=== PATIENT | male | born 1960 | race Caucasian/White ===

== ENCOUNTER 2020-08-18 21:49 | Inpatient (IN) | payer BC, OTHER ==
[~2020-08-18] VITALS: Ht 188 cm; Wt 113.6 kg
[~2020-08-18 21:49] MED LIST: SULF1TAB45 PO; VANCOmycin 2,000MG in NS 500ml IV soln IV ONE
[2020-08-18 22:30] LABS: BASOPHILS # (AUTO) 0.1 X10'3 (0-0.2); BASOPHILS % (AUTO) 0.9 % (0-1); EOSINOPHILS % (AUTO) 0.5 % (0-6); HEMATOCRIT 42.7 % (42.0-52.0); HEMOGLOBIN 14.7 g/dl (14.0-17.9); LYMPHOCYTES # (AUTO) 1.5 X10'3 (1.1-4.8); LYMPHOCYTES % (AUTO) 17.4 % (21-51); MEAN CORPUSCULAR HEMOGLOBIN 30.6 PG (27.0-31.0); MEAN CORPUSCULAR HGB CONC 34.4 g/dL (33.0-36.5); MONOCYTES # (AUTO) 0.7 X10'3 (0-0.9); MONOCYTES % (AUTO) 7.7 % (2-12); NEUTROPHILS # (AUTO) 6.5 X10'3 (1.8-7.7); NEUTROPHILS % (AUTO) 73.5 % (42-75); PLATELET COUNT 154 X10'3 (140-440); RED CELL DISTRIBUTION WIDTH 12.3 % (11.5-14.5); WHITE BLOOD COUNT 8.8 X10'3 (4.5-11.0)
[2020-08-18] MEDS ORDERED: normal saline 1000ML IV soln IVB ONE (22:30)
[2020-08-18] MEDS ORDERED: diltiazem 5mg/ml 5ml inj. IV ONE (22:30)
[2020-08-18 22:43] LABS: ALANINE AMINOTRANSFERASE 20 U/L (12-78); ALBUMIN 3.7 G/DL (3.4-5.0); ALBUMIN/GLOBULIN RATIO 0.8 (1.1-1.5); ALKALINE PHOSPHATASE 61 IU/L (46-116); ANION GAP 10 (8-16); ASPARTATE AMINO TRANSFERASE 14 U/L (10-37); BLOOD UREA NITROGEN 17 MG/DL (7-18); CALCIUM 9.3 MG/DL (8.5-10.1); CHLORIDE 98 MMOL/L (99-107); CREATININE 1.06 MG/DL (0.60-1.10); GLUCOSE 372 MG/DL (70-104); POTASSIUM 4.3 MMOL/L (3.5-5.1); SODIUM 135 MMOL/L (135-145); TOTAL CARBON DIOXIDE 27.1 MMOL/L (24-32); TOTAL PROTEIN 8.4 G/DL (6.4-8.2); eGFR 72 ML/MIN
[2020-08-18] MEDS ORDERED: diltiazem-NS 100mg/100ml 100 ML IV SCH (23:05)
[2020-08-18] MEDS ORDERED: magnesium 2GM in 50ml NS 50 ML IV PRN (23:15)
[2020-08-18] MEDS ORDERED: ondansetron/PF 4mg/2ml inj IV PRN (23:15)
[2020-08-18] MEDS ORDERED: magnesium Cl slow-release 64mg tablet PO PRN (23:15)
[2020-08-18] MEDS ORDERED: glucagon, human recombinant 1mg kit SUBCUT PRN (23:15)
[2020-08-18] MEDS ORDERED: potassium Cl 20 mEq SR tablet PO PRN ×2 (23:15)
[2020-08-18] MEDS ORDERED: magnesium 4gm in 100ml NS 100 ML IV PRN (23:15)
[2020-08-18] MEDS ORDERED: dextrose 50%-water 50ml dispensing syringe IV PRN ×2 (23:15)
[2020-08-18] MEDS ORDERED: mag hydrox/Alum hydrox/simeth 30ml oral suspension PO PRN (23:15)
[2020-08-18] MEDS ORDERED: MESSAGE TO PHARMACY PO ONE (23:15)
[2020-08-18] MEDS ORDERED: acetaminophen 325mg tablet PO PRN (23:15)
[2020-08-18] MEDS ORDERED: potassium Cl 40MEQ/1/2NS 520ml 520 ML IV PRN ×2 (23:15)
[2020-08-18] MEDS ORDERED: dextrose ORAL solution 15 GM/59 ML bottle PO PRN ×2 (23:15)
[2020-08-18] MEDS: diltiazem-NS 100mg/100ml 100 ML IV SCH (23:33)
[2020-08-18] MEDS ORDERED: VANCOmycin 2,000MG in NS 500ml IV soln IV ONE (23:55)
[2020-08-18] MEDS ORDERED: NO HOME MEDS (23:55)
[2020-08-19] VITALS (11 sets, daily range): BP systolic 121–152; BP diastolic 56–90
[2020-08-19] MEDS: morphine 2 MG/ML inj. syringe IV PRN ×5 (00:32→23:39)
--- NOTE | 2020-08-19 00:36 | NUR ---
Cardizem drip increased to 10mg/hr for HR 125 a-fib, BP 139/92, SPo2 97% RR 16
--- NOTE | 2020-08-19 02:00 | NUR ---
Patient in room PCU 3012. I have received report from Myron ALVAREZ and had the opportunity to ask questions and assume patient care.
[2020-08-19 02:03] LABS: CLARITY,URINE CLEAR (Clear); COLOR,URINE YELLOW (Yellow); GLUCOSE, URINE >=1000 mg/dl (Neg); KETONES,URINE 15 mg/dl (Neg); LEUKOCYTE ESTERASE ,URINE NEGATIVE (Neg); NITRITES, URINE NEGATIVE (Neg); OCCULT BLOOD,URINE TRACE-LYSED (Neg); PH,URINE 5.5 (4.8-8.0); PROTEIN,URINE NEGATIVE (Neg); UROBILINOGEN,URINE 0.2 E.U/dL (0.2-1.0)
[2020-08-19 02:08] LABS: RBC,URINE 0-2 /HPF (0-2); UA COLLECTION TYPE CLN CATCH MIDSTREAM; WBC,URINE 0-4 /HPF (0-4)
[2020-08-19 02:09] LABS: BACTERIA,URINE NONE SEEN /HPF (Neg); SQUAMOUS EPITHELIAL CELL,UR FEW /LPF (FEW)
[2020-08-19] MEDS: diltiazem-NS 100mg/100ml 100 ML IV SCH (06:55)
[2020-08-19 06:56] LABS: BASOPHILS # (AUTO) 0.1 X10'3 (0-0.2); BASOPHILS % (AUTO) 0.8 % (0-1); EOSINOPHILS # (AUTO) 0.1 X10'3 (0-0.9); EOSINOPHILS % (AUTO) 0.8 % (0-6); HEMATOCRIT 39.8 % (42.0-52.0); HEMOGLOBIN 13.6 g/dl (14.0-17.9); LYMPHOCYTES # (AUTO) 1.5 X10'3 (1.1-4.8); LYMPHOCYTES % (AUTO) 20.3 % (21-51); MEAN CORPUSCULAR HEMOGLOBIN 30.6 PG (27.0-31.0); MEAN CORPUSCULAR HGB CONC 34.3 g/dL (33.0-36.5); MEAN CORPUSCULAR VOLUME 89.4 FL (78-98); MEAN PLATELET VOLUME 9.7 FL (7.4-10.4); MONOCYTES # (AUTO) 0.8 X10'3 (0-0.9); MONOCYTES % (AUTO) 11.1 % (2-12); NEUTROPHILS # (AUTO) 4.8 X10'3 (1.8-7.7); PLATELET COUNT 144 X10'3 (140-440); RED BLOOD COUNT 4.45 X10'6 (4.70-6.10); RED CELL DISTRIBUTION WIDTH 12.5 % (11.5-14.5); WHITE BLOOD COUNT 7.2 X10'3 (4.5-11.0)
[2020-08-19 07:29] LABS: ALANINE AMINOTRANSFERASE 19 U/L (12-78); ALBUMIN 3.3 G/DL (3.4-5.0); ALBUMIN/GLOBULIN RATIO 0.8 (1.1-1.5); ALKALINE PHOSPHATASE 53 IU/L (46-116); ANION GAP 7 (8-16); ASPARTATE AMINO TRANSFERASE 11 U/L (10-37); BILIRUBIN,TOTAL 0.9 MG/DL (0.1-1.0); BLOOD UREA NITROGEN 14 MG/DL (7-18); BUN/CREATININE RATIO 17.5 (5.4-32.0); CALCIUM 9.1 MG/DL (8.5-10.1); CHLORIDE 102 MMOL/L (99-107); GLUCOSE 261 MG/DL (70-104); MAGNESIUM 1.8 MG/DL (1.5-2.4); POTASSIUM 3.8 MMOL/L (3.5-5.1); SODIUM 137 MMOL/L (135-145); TOTAL CARBON DIOXIDE 27.7 MMOL/L (24-32); TOTAL PROTEIN 7.6 G/DL (6.4-8.2); eGFR > 90 ML/MIN
[2020-08-19] MEDS: apixaban 5mg tablet PO SCH ×2 (07:59→19:25)
[2020-08-19] MEDS ORDERED: metoprolol tartrate 50mg tablet PO SCH (08:00)
[2020-08-19] MEDS: K and/or MAG REPLACEMENT MC SCH ×2 (08:00→19:09)
[2020-08-19] MEDS: vancomycin/NS 1 GM ADD-VANTAGE 250 ML X 1 DOSE IV SCH ×3 (08:16→23:40)
[2020-08-19] MEDS: insulin Lispro (HumaLOG) vial - multi-dose SQ SCH ×3 (09:16→19:24)
[2020-08-19] MEDS: metoprolol tartrate 25mg tablet PO SCH ×2 (10:20→19:36)
[2020-08-19] MEDS ORDERED: VANCOmycin 1250MG/NS 250ml Bag 250 ML IV SCH (13:00)
--- NOTE | 2020-08-19 15:28 | NUR ---
Malnutrition/DM Consults: Pt admit DX R toe osteomyelitis hx T2DM A1C 10.0 and has not taken meds since first DX 5 years ago per EMR. Pt seen by RD for written/verbal DM ed w/ RD contact information provided. RD reviewed protein sources, carb portioning, hydration, and optimal snack options w/ pt. Pt reports was started on metformin after DX but made him feel terrible so stopped taking and has not obtained a PCP or taken meds since w/ Glu typically high 200's at home. RD encouraged pt to establish w/ PCP for DM management and educated pt on importance of Glu control especially in presence of infection. Pt is agreeable to double eggs WB and double meats BIDLD for satiety; dietary notified. PO 100% breakfast w/ no significant weakness noted, and appears well-nourished during RD visit. Does not meet minimum malnutrition criteria. To provide full initial assessment on above date. Addendum: 08/19/20 at [address] Amended: Links added.
--- NOTE | 2020-08-19 16:06 | NUR ---
Paged Dr. Fountain regarding patient transfer. PAGER ID: [phone] MESSAGE: [id number] Markel Olvera. Is it okay to transfer off Telemetry floor to another floor? Now off isabela. Thank you [facility] [id number]
--- NOTE | 2020-08-19 17:46 | NUR ---
Paged Dr. Fountain regarding transfer again. PAGER ID: [phone] MESSAGE: [phone] Markel Olvera. Can he transfer to [facility]? [facility] PCU [phone].
--- NOTE | 2020-08-19 18:38 | NUR ---
Problems reprioritized. Patient report given, questions answered & plan of care reviewed with Melyssa ALVAREZ. Patient stable at tranfer of care.
[2020-08-19] MEDS: lactobacillus rhamnosus 10,000 MMU CELLS/CAPSULE PO SCH (19:26)
[2020-08-19] MEDS: diltiazem 30mg tablet PO SCH (19:26)
[2020-08-19] MEDS: insulin glargine (Lantus) pen - multi-dose SQ SCH (21:08)
[2020-08-20] VITALS (7 sets, daily range): BP systolic 118–140; BP diastolic 69–81
[2020-08-20] MEDS: diltiazem 30mg tablet PO SCH ×4 (02:27→19:51)
[2020-08-20] MEDS: HYDROcodone/acetaminophen 5mg/325mg tablet PO PRN ×4 (02:40→23:34)
--- NOTE | 2020-08-20 06:30 | NUR ---
REPORT GIVEN TO KIM CORDOVA.
[2020-08-20] MEDS ORDERED: VANCOMYCIN LEVEL IV ONE (07:30)
[2020-08-20] MEDS: K and/or MAG REPLACEMENT MC SCH ×2 (08:00→19:55)
[2020-08-20 08:07] LABS: BASOPHILS # (AUTO) 0.1 X10'3 (0-0.2); BASOPHILS % (AUTO) 0.8 % (0-1); EOSINOPHILS # (AUTO) 0.1 X10'3 (0-0.9); EOSINOPHILS % (AUTO) 1.4 % (0-6); HEMATOCRIT 41.1 % (42.0-52.0); HEMOGLOBIN 14.1 g/dl (14.0-17.9); LYMPHOCYTES # (AUTO) 1.5 X10'3 (1.1-4.8); LYMPHOCYTES % (AUTO) 21.6 % (21-51); MEAN CORPUSCULAR HEMOGLOBIN 30.7 PG (27.0-31.0); MEAN CORPUSCULAR HGB CONC 34.4 g/dL (33.0-36.5); MEAN CORPUSCULAR VOLUME 89.1 FL (78-98); MEAN PLATELET VOLUME 9.8 FL (7.4-10.4); MONOCYTES # (AUTO) 0.6 X10'3 (0-0.9); MONOCYTES % (AUTO) 8.9 % (2-12); NEUTROPHILS # (AUTO) 4.5 X10'3 (1.8-7.7); NEUTROPHILS % (AUTO) 67.3 % (42-75); PLATELET COUNT 168 X10'3 (140-440); RED BLOOD COUNT 4.61 X10'6 (4.70-6.10); RED CELL DISTRIBUTION WIDTH 12.1 % (11.5-14.5); WHITE BLOOD COUNT 6.7 X10'3 (4.5-11.0)
[2020-08-20 08:15] LABS: ALANINE AMINOTRANSFERASE 23 U/L (12-78); ALBUMIN/GLOBULIN RATIO 0.7 (1.1-1.5); ALKALINE PHOSPHATASE 54 IU/L (46-116); ANION GAP 2 (8-16); ASPARTATE AMINO TRANSFERASE 12 U/L (10-37); BILIRUBIN,TOTAL 0.7 MG/DL (0.1-1.0); BLOOD UREA NITROGEN 17 MG/DL (7-18); BUN/CREATININE RATIO 19.1 (5.4-32.0); CALCIUM 9.2 MG/DL (8.5-10.1); CHLORIDE 103 MMOL/L (99-107); CREATININE 0.89 MG/DL (0.60-1.10); GLUCOSE 222 MG/DL (70-104); POTASSIUM 4.2 MMOL/L (3.5-5.1); SODIUM 136 MMOL/L (135-145); TOTAL CARBON DIOXIDE 31.2 MMOL/L (24-32); TOTAL PROTEIN 7.4 G/DL (6.4-8.2); eGFR 87 ML/MIN
[2020-08-20 08:16] LABS: MAGNESIUM 1.8 MG/DL (1.5-2.4); VANCOMYCIN,TROUGH 9.3 UG/ML (6.0-14.0)
[2020-08-20] MEDS ORDERED: VANCOmycin 1250MG/NS 250ml Bag 250 ML IV SCH (09:03)
[2020-08-20] MEDS: lactobacillus rhamnosus 10,000 MMU CELLS/CAPSULE PO SCH ×2 (09:22→19:51)
[2020-08-20] MEDS: apixaban 5mg tablet PO SCH ×2 (09:22→19:51)
[2020-08-20] MEDS: metoprolol tartrate 25mg tablet PO SCH ×2 (09:26→19:51)
[2020-08-20] MEDS: insulin Lispro (HumaLOG) vial - multi-dose SQ SCH ×3 (09:32→19:54)
[2020-08-20] MEDS: vancomycin 1500mg/300ml PREMIX 250 ML IV SCH ×3 (10:38→23:35)
--- NOTE | 2020-08-20 13:39 | NUR ---
08/20 DM consult: Patient's A1c has already been addressed, see below. Malnutrition/DM Consults: Pt admit DX R toe osteomyelitis hx T2DM A1C 10.0 and has not taken meds since first DX 5 years ago per EMR. Pt seen by RD for written/verbal DM ed w/ RD contact information provided. RD reviewed protein sources, carb portioning, hydration, and optimal snack options w/ pt. Pt reports was started on metformin after DX but made him feel terrible so stopped taking and has not obtained a PCP or taken meds since w/ Glu typically high 200[address] home[address] RD encouraged pt to establish w/ PCP for DM management and educated pt on importance of Glu control especially in presence of infection. Pt is agreeable to double eggs WB and double meats BIDLD for satiety; dietary notified. PO 100% breakfast w/ no significant weakness noted, and appears well-nourished during RD visit. Does not meet minimum malnutrition criteria. To provide full initial assessment on above date. Addendum: 08/20/20 at [address] Amended: Links added.
--- NOTE | 2020-08-20 14:12 | NUR ---
Pt provides his own darvin-care Addendum: 08/20/20 at 1416 by Radha Rivas RN Amended: Links added.
--- NOTE | 2020-08-20 14:13 | NUR ---
Provided written education on new cardiac medications. Pt. denies having any questions at this time Addendum: 08/20/20 at 1416 by Radha Rivas RN Amended: Links added.
--- NOTE | 2020-08-20 16:55 | NUR ---
PAGER ID: [phone] MESSAGE: Markel Wade [phone] pt.'s in room with pt. crying. they want to know what is the next step with a fib? pt. still in afib but on medications. attempted to educate but do not know "the plan". Can you call me and talk to them?Radha [phone]
--- NOTE | 2020-08-20 18:25 | NUR ---
Gave report to Lisa ALVAREZ. Aware of rate and rhythm. Pt. c/o resolving pain.
--- NOTE | 2020-08-20 18:40 | NUR ---
Patient in room PCU 3012. I have received report from Radha ALVAREZ and had the opportunity to ask questions and assume patient care.
[2020-08-20] MEDS: insulin glargine (Lantus) pen - multi-dose SQ SCH (21:41)
[2020-08-21] MEDS: diltiazem 30mg tablet PO SCH ×4 (01:37→20:20)
[2020-08-21 02:00] VITALS: BP 142/82
[2020-08-21] MEDS: HYDROcodone/acetaminophen 5mg/325mg tablet PO PRN ×3 (05:26→20:21)
[2020-08-21 06:30] VITALS: BP 125/75
--- NOTE | 2020-08-21 06:38 | NUR ---
Problems reprioritized. Patient report given, questions answered & plan of care reviewed with Annmarie ALVAREZ.
--- NOTE | 2020-08-21 06:40 | NUR ---
Patient in room PCU 3012. I have received report from Samara ALVAREZ and had the opportunity to ask questions and assume patient care.
[2020-08-21] MEDS ORDERED: VANCOMYCIN LEVEL IV ONE (07:30)
[2020-08-21] MEDS: apixaban 5mg tablet PO SCH ×2 (07:46→20:20)
[2020-08-21] MEDS: metoprolol tartrate 25mg tablet PO SCH ×2 (07:46→20:20)
[2020-08-21] MEDS: morphine 2 MG/ML inj. syringe IV PRN (07:47)
[2020-08-21] MEDS: lactobacillus rhamnosus 10,000 MMU CELLS/CAPSULE PO SCH ×2 (07:47→20:19)
[2020-08-21] MEDS: K and/or MAG REPLACEMENT MC SCH ×2 (08:00→20:00)
[2020-08-21 08:17] LABS: BASOPHILS # (AUTO) 0.1 X10'3 (0-0.2); BASOPHILS % (AUTO) 1.1 % (0-1); EOSINOPHILS # (AUTO) 0.1 X10'3 (0-0.9); EOSINOPHILS % (AUTO) 1.8 % (0-6); HEMOGLOBIN 14.2 g/dl (14.0-17.9); LYMPHOCYTES # (AUTO) 1.7 X10'3 (1.1-4.8); LYMPHOCYTES % (AUTO) 23.6 % (21-51); MEAN CORPUSCULAR HEMOGLOBIN 30.2 PG (27.0-31.0); MEAN CORPUSCULAR HGB CONC 33.8 g/dL (33.0-36.5); MEAN CORPUSCULAR VOLUME 89.1 FL (78-98); MEAN PLATELET VOLUME 9.4 FL (7.4-10.4); MONOCYTES # (AUTO) 0.6 X10'3 (0-0.9); MONOCYTES % (AUTO) 8.8 % (2-12); NEUTROPHILS # (AUTO) 4.6 X10'3 (1.8-7.7); NEUTROPHILS % (AUTO) 64.7 % (42-75); PLATELET COUNT 182 X10'3 (140-440); RED BLOOD COUNT 4.71 X10'6 (4.70-6.10); RED CELL DISTRIBUTION WIDTH 12.2 % (11.5-14.5); WHITE BLOOD COUNT 7.1 X10'3 (4.5-11.0)
--- NOTE | 2020-08-21 08:17 | NUR ---
Patient was complaining about another patient in the room (room 3012B), patient stated that the room mate has been noisy last night and today. Patient in bed B has been listening to his radio from a cellphone loudly. I had communicated this to the charge nurse Tamy to see if we can change either this patient or the other patient's room location.
[2020-08-21 08:22] LABS: ALANINE AMINOTRANSFERASE 22 U/L (12-78); ALBUMIN/GLOBULIN RATIO 0.7 (1.1-1.5); ALKALINE PHOSPHATASE 58 IU/L (46-116); ANION GAP 9 (8-16); ASPARTATE AMINO TRANSFERASE 14 U/L (10-37); BILIRUBIN,TOTAL 0.5 MG/DL (0.1-1.0); BLOOD UREA NITROGEN 16 MG/DL (7-18); BUN/CREATININE RATIO 19.3 (5.4-32.0); CALCIUM 9.3 MG/DL (8.5-10.1); CHLORIDE 102 MMOL/L (99-107); CREATININE 0.83 MG/DL (0.60-1.10); GLUCOSE 151 MG/DL (70-104); MAGNESIUM 1.9 MG/DL (1.5-2.4); POTASSIUM 3.9 MMOL/L (3.5-5.1); SODIUM 139 MMOL/L (135-145); TOTAL CARBON DIOXIDE 27.9 MMOL/L (24-32); TOTAL PROTEIN 7.4 G/DL (6.4-8.2); VANCOMYCIN,TROUGH 16.3 UG/ML (6.0-14.0); eGFR > 90 ML/MIN
[2020-08-21] MEDS: vancomycin 1500mg/300ml PREMIX 250 ML IV SCH ×2 (09:04→16:09)
[2020-08-21] MEDS: insulin Lispro (HumaLOG) vial - multi-dose SQ SCH ×3 (09:07→19:36)
--- NOTE | 2020-08-21 10:40 | NUR ---
Denae RN (PICC line nurse) notified about the order for PICC line for this patient. She said she would probably not be able to do it today but tomorrow as she has someone to train with her tomorrow.
--- NOTE | 2020-08-21 10:47 | NUR ---
Paged Vascular dept. PCU Annmarie ALVAREZ ext [phone]. RE: Markel Olvera. [phone]. Patient need VL Arterial today please. Thanks
[2020-08-21 11:00] VITALS: BP 130/65
[2020-08-21] MEDS: metroNIDAZOLE 500mg tablet PO SCH ×2 (11:18→20:19)
[2020-08-21] MEDS: CefTRIAXone 2gm/D5W 50ml BAG 50 ML IV SCH (11:19)
[2020-08-21 15:00] VITALS: BP 130/69
[2020-08-21 18:00] VITALS: BP 137/77
--- NOTE | 2020-08-21 18:20 | NUR ---
Problems reprioritized. Patient report given, questions answered & plan of care reviewed with Samara ALVAREZ.
[2020-08-21 22:00] VITALS: BP 134/81
[2020-08-21] MEDS: insulin glargine (Lantus) pen - multi-dose SQ SCH (22:23)
[2020-08-22] MEDS: diltiazem 30mg tablet PO SCH ×4 (01:22→19:26)
[2020-08-22] MEDS: magnesium hydroxide 30ml (MOM) UD suspension PO PRN ×2 (01:22→17:04)
[2020-08-22] MEDS: morphine 2 MG/ML inj. syringe IV PRN (01:25)
[2020-08-22 02:00] VITALS: BP 132/79
[2020-08-22] MEDS: HYDROcodone/acetaminophen 5mg/325mg tablet PO PRN ×3 (05:30→19:24)
--- NOTE | 2020-08-22 06:30 | NUR ---
Problems reprioritized. Patient report given, questions answered & plan of care reviewed with Shelby ALVAREZ.
--- NOTE | 2020-08-22 06:38 | NUR ---
Patient in room PCU 3012C. I have received report from KIM MANZO and had the opportunity to ask questions and assume patient care.
[2020-08-22 07:00] VITALS: BP 115/85
[2020-08-22] MEDS: K and/or MAG REPLACEMENT MC SCH ×2 (08:00→20:00)
[2020-08-22 08:17] LABS: BASOPHILS # (AUTO) 0.1 X10'3 (0-0.2); BASOPHILS % (AUTO) 1.3 % (0-1); EOSINOPHILS # (AUTO) 0.2 X10'3 (0-0.9); HEMATOCRIT 42.1 % (42.0-52.0); HEMOGLOBIN 14.2 g/dl (14.0-17.9); LYMPHOCYTES # (AUTO) 1.4 X10'3 (1.1-4.8); LYMPHOCYTES % (AUTO) 18.8 % (21-51); MEAN CORPUSCULAR HEMOGLOBIN 30.1 PG (27.0-31.0); MEAN CORPUSCULAR HGB CONC 33.7 g/dL (33.0-36.5); MEAN CORPUSCULAR VOLUME 89.5 FL (78-98); MEAN PLATELET VOLUME 9.8 FL (7.4-10.4); MONOCYTES # (AUTO) 0.7 X10'3 (0-0.9); MONOCYTES % (AUTO) 9.3 % (2-12); NEUTROPHILS # (AUTO) 5.2 X10'3 (1.8-7.7); NEUTROPHILS % (AUTO) 68.6 % (42-75); PLATELET COUNT 195 X10'3 (140-440); WHITE BLOOD COUNT 7.6 X10'3 (4.5-11.0)
[2020-08-22] MEDS: metroNIDAZOLE 500mg tablet PO SCH ×2 (08:17→19:24)
[2020-08-22] MEDS: lactobacillus rhamnosus 10,000 MMU CELLS/CAPSULE PO SCH ×2 (08:17→19:23)
[2020-08-22] MEDS: apixaban 5mg tablet PO SCH ×2 (08:17→19:24)
[2020-08-22] MEDS: metoprolol tartrate 25mg tablet PO SCH ×2 (08:24→19:26)
[2020-08-22] MEDS: insulin Lispro (HumaLOG) vial - multi-dose SQ SCH ×2 (08:29→13:40)
[2020-08-22 08:51] LABS: ALANINE AMINOTRANSFERASE 23 U/L (12-78); ALBUMIN 3.1 G/DL (3.4-5.0); ALBUMIN/GLOBULIN RATIO 0.7 (1.1-1.5); ALKALINE PHOSPHATASE 69 IU/L (46-116); ANION GAP 9 (8-16); ASPARTATE AMINO TRANSFERASE 15 U/L (10-37); BILIRUBIN,TOTAL 0.6 MG/DL (0.1-1.0); BLOOD UREA NITROGEN 17 MG/DL (7-18); BUN/CREATININE RATIO 22.4 (5.4-32.0); CALCIUM 9.4 MG/DL (8.5-10.1); CHLORIDE 101 MMOL/L (99-107); CREATININE 0.76 MG/DL (0.60-1.10); GLUCOSE 162 MG/DL (70-104); MAGNESIUM 1.8 MG/DL (1.5-2.4); POTASSIUM 3.8 MMOL/L (3.5-5.1); SODIUM 137 MMOL/L (135-145); TOTAL PROTEIN 7.7 G/DL (6.4-8.2); eGFR > 90 ML/MIN
--- NOTE | 2020-08-22 10:52 | NUR ---
PIC Line information Ref [id number] LOT [id number] EXP 05/04/21
[2020-08-22 11:00] VITALS: BP 125/83
[2020-08-22] MEDS: CefTRIAXone 2gm/D5W 50ml BAG 50 ML IV SCH (11:01)
--- NOTE | 2020-08-22 14:25 | NUR ---
Initial: Pt admit DX R toe osteomyelitis hx T2DM A1C 10.0 and has not taken meds since first DX 5 years ago per EMR. Has been seen for DM ed by JAMES this admit. Pt PO 75-100% most meals outside of drop to ~25-50% yesterday receiving double proteins TIDWM and overall meeting needs. R second toe eschar w/ maceration present per WOC note. LBM 08/20. Will continue to monitor for additional protein needs this admit. Rec: 1. continue carb controlled diet; double proteins TIDWM for satiety 2. routine bowel care 3. scaled wt this admit Addendum: 08/22/20 at [address] Amended: Links added.
[2020-08-22 15:00] VITALS: BP 123/82
[2020-08-22 18:00] VITALS: BP 129/87
--- NOTE | 2020-08-22 18:20 | NUR ---
Problems reprioritized. Patient report given, questions answered & plan of care reviewed with KIM PIERSON.
[2020-08-22] MEDS: insulin glargine (Lantus) pen - multi-dose SQ SCH (21:58)
[2020-08-22 22:00] VITALS: BP 135/85
[2020-08-23] MEDS: HYDROcodone/acetaminophen 5mg/325mg tablet PO PRN ×2 (00:30→08:40)
[2020-08-23] MEDS: diltiazem 30mg tablet PO SCH ×3 (01:46→13:24)
[2020-08-23 02:00] VITALS: BP 141/84
[2020-08-23 04:03] LABS: BASOPHILS # (AUTO) 0.1 X10'3 (0-0.2); EOSINOPHILS # (AUTO) 0.2 X10'3 (0-0.9); EOSINOPHILS % (AUTO) 2.8 % (0-6); HEMATOCRIT 40.5 % (42.0-52.0); HEMOGLOBIN 13.6 g/dl (14.0-17.9); LYMPHOCYTES # (AUTO) 1.8 X10'3 (1.1-4.8); LYMPHOCYTES % (AUTO) 23.9 % (21-51); MEAN CORPUSCULAR HEMOGLOBIN 30.2 PG (27.0-31.0); MEAN CORPUSCULAR HGB CONC 33.6 g/dL (33.0-36.5); MEAN CORPUSCULAR VOLUME 89.7 FL (78-98); MONOCYTES # (AUTO) 0.6 X10'3 (0-0.9); MONOCYTES % (AUTO) 8.5 % (2-12); NEUTROPHILS # (AUTO) 4.8 X10'3 (1.8-7.7); NEUTROPHILS % (AUTO) 63.8 % (42-75); PLATELET COUNT 193 X10'3 (140-440); RED BLOOD COUNT 4.51 X10'6 (4.70-6.10); RED CELL DISTRIBUTION WIDTH 11.9 % (11.5-14.5); WHITE BLOOD COUNT 7.6 X10'3 (4.5-11.0)
[2020-08-23 04:10] LABS: ALANINE AMINOTRANSFERASE 16 U/L (12-78); ALBUMIN 2.8 G/DL (3.4-5.0); ALBUMIN/GLOBULIN RATIO 0.7 (1.1-1.5); ALKALINE PHOSPHATASE 56 IU/L (46-116); ANION GAP 7 (8-16); ASPARTATE AMINO TRANSFERASE 16 U/L (10-37); BILIRUBIN,TOTAL 0.5 MG/DL (0.1-1.0); BLOOD UREA NITROGEN 18 MG/DL (7-18); BUN/CREATININE RATIO 20.5 (5.4-32.0); CALCIUM 9.2 MG/DL (8.5-10.1); CHLORIDE 104 MMOL/L (99-107); CREATININE 0.88 MG/DL (0.60-1.10); GLUCOSE 121 MG/DL (70-104); POTASSIUM 3.9 MMOL/L (3.5-5.1); SODIUM 140 MMOL/L (135-145); TOTAL CARBON DIOXIDE 28.6 MMOL/L (24-32); TOTAL PROTEIN 7.1 G/DL (6.4-8.2); eGFR 89 ML/MIN
[2020-08-23 06:00] VITALS: BP 121/74
--- NOTE | 2020-08-23 06:28 | NUR ---
Patient in room PCU 3012. I have received report from Estefanía ALVAREZ and had the opportunity to ask questions and assume patient care.
[2020-08-23] MEDS: K and/or MAG REPLACEMENT MC SCH (08:00)
[2020-08-23] MEDS: magnesium hydroxide 30ml (MOM) UD suspension PO PRN (08:39)
[2020-08-23] MEDS: CefTRIAXone 2gm/D5W 50ml BAG 50 ML IV SCH (08:40)
[2020-08-23] MEDS: lactobacillus rhamnosus 10,000 MMU CELLS/CAPSULE PO SCH (08:40)
[2020-08-23] MEDS: apixaban 5mg tablet PO SCH (08:43)
[2020-08-23] MEDS: metoprolol tartrate 25mg tablet PO SCH (08:43)
[2020-08-23] MEDS: metroNIDAZOLE 500mg tablet PO SCH (08:43)
[2020-08-23] MEDS: insulin Lispro (HumaLOG) vial - multi-dose SQ SCH ×2 (10:22→13:26)
[2020-08-23 11:00] VITALS: BP 147/86
[2020-08-23] MEDS ORDERED: EMPA10TA PO (11:45)
[2020-08-23] MEDS ORDERED: METF-950 PO (11:45)
--- NOTE | 2020-08-23 14:42 | NUR ---
All discharge information given to patient, and medication called in patient's pharmacy. Patient alert and oriented x 4 at time of dicharge Addendum: 08/23/20 at 1445 by Estefanía Zaragoza RN patient alert and oriented x 4 at time of discharge. All patient's questions answered
[2020-08-23] MEDS ORDERED: APIX5TAB3 PO (16:03)
[2020-08-23] MEDS ORDERED: DILT-91 PO (16:07)
== END 2020-08-23 14:03 | disposition home or self-care (01) | DRG 308 ==
LOC: ER 21:50 → ED HOLD 23:13 → PCU 3S 08-19 01:45
PROVIDERS: ADMIT Internal Medicine; ATTEND Internal Medicine
PROC: 05HY33Z Insertion of Infusion Device into Upper Vein, Percutaneous Approach (ICD-10-PCS; principal; 2020-08-22)
DX: I48.0 Paroxysmal atrial fibrillation (principal); G92 Toxic encephalopathy; M86.8X7 Other osteomyelitis, ankle and foot; L03.115 Cellulitis of right lower limb; E11.69 Type 2 diabetes mellitus with other specified complication; E11.65 Type 2 diabetes mellitus with hyperglycemia; E66.01 Morbid (severe) obesity due to excess calories; Z68.32 Body mass index [BMI] 32.0-32.9, adult; Z87.891 Personal history of nicotine dependence; Z91.19 Patient's noncompliance with other medical treatment and regimen; Z85.47 Personal history of malignant neoplasm of testis; Z79.84 Long term (current) use of oral hypoglycemic drugs
CPT/HCPCS: 36415; 36573; 71045; 73620; 80053; 80202; 81001; 82948; 83036; 83605; 83735; 84145; 85025; 87040; 87070; 87075; 87077; 87081; 87186; 93005; 93922; 93926; 96365; 99285; G0378; J0696; J1815; J2270; J3370; J3490; J7030; J7040

== ENCOUNTER → 2020-09-03 | Outpatient (CLI) | payer BC ==
[~2020-09-03] MED LIST changes: +APIX5TAB3 PO; +DILT-91 PO; +EMPA10TA PO; +LIDOcaine 2% 5ml jelly ONE; +METF-950 PO; -SULF1TAB45 PO; -VANCOmycin 2,000MG in NS 500ml IV soln IV ONE
== END | disposition home or self-care (01) ==
LOC: WOUND CARE 10:51 → EDSTATUS 11:00
PROVIDERS: ATTEND Nurse Practitioner
DX: E11.621 Type 2 diabetes mellitus with foot ulcer (principal); L97.513 Non-pressure chronic ulcer of other part of right foot with necrosis of muscle; I10 Essential (primary) hypertension; E66.01 Morbid (severe) obesity due to excess calories; E11.65 Type 2 diabetes mellitus with hyperglycemia; E11.69 Type 2 diabetes mellitus with other specified complication; M86.8X7 Other osteomyelitis, ankle and foot; I48.0 Paroxysmal atrial fibrillation; G92 Toxic encephalopathy; Z79.84 Long term (current) use of oral hypoglycemic drugs; Z96.651 Presence of right artificial knee joint; Z87.891 Personal history of nicotine dependence; Z85.47 Personal history of malignant neoplasm of testis; Z68.32 Body mass index [BMI] 32.0-32.9, adult
CPT/HCPCS: 11042

== ENCOUNTER → 2020-10-04 | Day surgery (SDC) | payer BC ==
[2020-10-02 15:41] LABS: BASOPHILS # (AUTO) 0.1 X10'3 (0-0.2); BASOPHILS % (AUTO) 1.4 % (0-1); EOSINOPHILS # (AUTO) 0.6 X10'3 (0-0.9); EOSINOPHILS % (AUTO) 8.6 % (0-6); HEMOGLOBIN 16.5 g/dl (14.0-17.9); LYMPHOCYTES # (AUTO) 1.7 X10'3 (1.1-4.8); LYMPHOCYTES % (AUTO) 25.9 % (21-51); MEAN CORPUSCULAR HEMOGLOBIN 29.6 PG (27.0-31.0); MEAN CORPUSCULAR HGB CONC 32.9 g/dL (33.0-36.5); MEAN PLATELET VOLUME 9.6 FL (7.4-10.4); MONOCYTES # (AUTO) 0.5 X10'3 (0-0.9); NEUTROPHILS # (AUTO) 3.6 X10'3 (1.8-7.7); NEUTROPHILS % (AUTO) 56.1 % (42-75); PLATELET COUNT 179 X10'3 (140-440); RED BLOOD COUNT 5.55 X10'6 (4.70-6.10); RED CELL DISTRIBUTION WIDTH 13.7 % (11.5-14.5); WHITE BLOOD COUNT 6.5 X10'3 (4.5-11.0)
[2020-10-02 15:51] LABS: PARTIAL THROMBOPLASTIN TIME 28 SECONDS (22-32)
[2020-10-02 15:53] LABS: ALANINE AMINOTRANSFERASE 26 U/L (12-78); ALBUMIN 4.3 G/DL (3.4-5.0); ALBUMIN/GLOBULIN RATIO 0.9 (1.1-1.5); ALKALINE PHOSPHATASE 57 IU/L (46-116); ANION GAP 10 (8-16); ASPARTATE AMINO TRANSFERASE 17 U/L (10-37); BILIRUBIN,TOTAL 0.6 MG/DL (0.1-1.0); BLOOD UREA NITROGEN 30 MG/DL (7-18); CALCIUM 9.7 MG/DL (8.5-10.1); CHLORIDE 105 MMOL/L (99-107); GLUCOSE 163 MG/DL (70-104); POTASSIUM 4.8 MMOL/L (3.5-5.1); SODIUM 142 MMOL/L (135-145); TOTAL CARBON DIOXIDE 27.2 MMOL/L (24-32); TOTAL PROTEIN 8.9 G/DL (6.4-8.2); eGFR 76 ML/MIN
[2020-10-04] VITALS (11 sets, daily range): BP systolic 109–140; BP diastolic 43–90
[~2020-10-04] VITALS: Ht 188 cm; Wt 110.0 kg
[~2020-10-04] MED LIST changes: +ACET-2615 PO; +AMOX-117 PO; +HYDROcodone/acetaminophen 10/325mg tab PO PRN; +HYDROcodone/acetaminophen 5mg/325mg tablet PO PRN; +IBUP-1984 PO; +LIDOcaine 1% (10mg/ml)w/preservative injection 20ml MDV ONE; -LIDOcaine 2% 5ml jelly ONE; +LORazepam 0.5 MG tablet PO PRN; +MESSAGE TO PHARMACY PO ONE; +METF-881 PO; -METF-950 PO; +OXAZEpam 15mg capsule PO PRN; +SOTA80TA73 PO; +dextrose 50%-water 50ml dispensing syringe IV PRN; +dextrose ORAL solution 15 GM/59 ML bottle PO PRN; +diphenhydrAMINE 25mg capsule PO PRN; +fentaNYL/PF 50MCG/1 ML 2ML syringe ONE; +glucagon, human recombinant 1mg kit SUBCUT PRN; +insulin Lispro (HumaLOG) vial - multi-dose SQ SCH; +insulin glargine (Lantus) pen - multi-dose SQ SCH; +iohexol 350 MG/ML 50ML vial IV ONE; +iohexol 350MG/ML 100ml bottle IV ONE; +midazolam 1 mg/ML 2ml injection ONE; +nitroGLYCERIN 0.4mg SUBLingual tab SL PRN; +normal saline 1,000 ML IV SCH; +ondansetron/PF 4mg/2ml inj IV PRN; +proCHLORperazine 10 MG/2 ml inj IV PRN
[2020-10-04 13:38] LABS: TROPONIN I < 0.04 NG/ML (0.0-0.05)
== END | disposition home or self-care (01) ==
LOC: SSTAY O 12:09
PROVIDERS: ATTEND Internal Medicine Cardiovascular Disease
DX: R94.39 Abnormal result of other cardiovascular function study (principal); I25.10 Atherosclerotic heart disease of native coronary artery without angina pectoris; I48.19 Other persistent atrial fibrillation; I10 Essential (primary) hypertension; E11.69 Type 2 diabetes mellitus with other specified complication; M86.8X7 Other osteomyelitis, ankle and foot; E78.5 Hyperlipidemia, unspecified; Z96.651 Presence of right artificial knee joint; Z79.01 Long term (current) use of anticoagulants; Z79.84 Long term (current) use of oral hypoglycemic drugs; Z79.899 Other long term (current) drug therapy; Z85.47 Personal history of malignant neoplasm of testis; Z87.891 Personal history of nicotine dependence; R06.02 Shortness of breath
CPT/HCPCS: 36415; 71046; 80053; 82948; 83880; 84484; 85025; 85610; 85730; 93005; 93458; 99152; 99153; C1760; C1769; J1644; J2001; J2250; J3010; J7030; Q0163; Q9967; A4620; A6258; J1815